=== PATIENT | male | born 1985 | race Caucasian/White ===

== ENCOUNTER 2023-02-22 01:53 | Emergency (ER) | payer SELFPAY ==
[~2023-02-22] VITALS: Ht 182.9 cm; Wt 83.5 kg
[2023-02-22] MEDS ORDERED: LEVETIRACETAM (500MG) 1,000 MG in IV NS 0.9% 100 ML IV STA (01:59)
[2023-02-22] MEDS ORDERED: IV NS 0.9% 1,000 ML BAG IV ONE (02:00)
--- NOTE | 2023-02-22 02:00 | NUR ---
[id number], PT HAD A SEIZURE EPISODE, BUMP ON BACK OF THE HEAD, ON KEPPRA. PT AAOX4, IN NAD. PLACED IN BED, VITALS CHECKED. SAFETY AND SEIZURE PRECAUTIONS IN PLACE.
[2023-02-22] MEDS ORDERED: LEVETIRACETAM (250 MG) 250 MG TABLET PO ONE ×2 (02:16→02:30)
--- NOTE | 2023-02-22 04:00 | NUR ---
Patient discharged to home in stable condition. Written and verbal after care instructions given. Patient verbalizes understanding of instruction.
[2023-02-22 04:03] VITALS: BP 125/81; TEMP 98
== END 2023-02-22 04:00 | disposition home or self-care (01) ==
LOC: ER 01:54
DX: R56.9 Unspecified convulsions (principal); F41.9 Anxiety disorder, unspecified; F32.A Depression, unspecified; F20.9 Schizophrenia, unspecified
CPT/HCPCS: J1953; J7030